=== PATIENT | male | born 1985 | race Caucasian/White ===

== ENCOUNTER 2020-06-27 09:33 | Emergency (ER) | payer OTHER ==
[2020-06-27 09:53] VITALS: BP 119/75
[2020-06-27] MEDS ORDERED: KETOROLAC TROMETHAMINE 60 MG/2 ML SDV IM ONE (10:54)
--- NOTE | 2020-06-27 10:56 | ER Document Report ---
HPI - HPI Time Seen by Provider: 06/27/20 10:31 Pain Level: 3 Context: Patient is a 35-year-old male who comes to the emergency department for chief complaint of lower back pain. He states he started having this pain about 3 days ago, he states this is worsened to the point that he has a a lot of trouble with position changes, he has to roll out of bed and maneuver for any position change. He also has a lot of pain with walking with shooting pains down the back of his left leg. Pain is worse in the left lower back. He denies recent injury although he states he has had trouble with his back for a while, he has been taking Robaxin without relief or improvement, he has seen a chiropractor in the past. He denies any specific severe trauma. 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 He denies any other medications or medical history. He denies recreational drugs, fever/chills, numbness, incontinence, vomiting, or other areas of pain. He is urinating without difficulty. Past Medical History - General Information source: Patient - Social History Smoking Status: Never Smoker Chew tobacco use (# tins/day): No Frequency of alcohol use: Social Drug Abuse: None Lives with: Family Family History: Reviewed & Not Pertinent - Immunizations Immunizations up to date: Yes Hx Diphtheria, Pertussis, Tetanus Vaccination: Yes Vertical Provider Document - CONSTITUTIONAL General Appearance: WD/WN, Mild Distress - Patient in obvious distress with position changes but otherwise well-appearing - HEENT HEENT: Atraumatic, Normal ENT Exam, Normocephalic - NECK Neck: Normal Inspection - RESPIRATORY Respiratory: Breath Sounds Normal, No Respiratory Distress - CARDIOVASCULAR Cardiovascular: Regular Rate, Regular Rhythm - GI/ABDOMEN Gastrointestinal: Abdomen Soft, Abdomen Non-Tender. negative: Abdomen Tender - BACK Back: negative: Normal Inspection - There is what appears to be muscle spasm in the left paralumbar musculature. Positive straight leg raise on the left. No midline tenderness, no saddle anesthesia, no signs of trauma. Normal upper and lower extremity range of motion, normal strength, normal distal neurovascular exam. - MUSCULOSKELETAL/EXTREMETIES Musculoskeletal/Extremeties: MAEW, FROM, Non-Tender - NEURO Level of Consciousness: Awake, Alert, Appropriate Motor/Sensory: No Motor Deficit, No Sensory Deficit - DERM Integumentary: Warm, Dry, No Rash Course - Re-evaluation Re-evalutation: Patient is miserable, has obvious difficulty with position changes, very positive left-sided straight leg raise, but no midline tenderness or red flags. No neurological deficits, fever, history of IV drug abuse. X-rays without any concerning findings. Patient has had this in the past. I suspect a herniated disc based on his physical exam and symptoms. I discussed work-up, patient is improved after Toradol but still having a lot of back spasms. Patient will be placed on therapy, [facility], I discussed recommendations and return precautions in detail. Patient is still able to ambulate. Patient states understanding and agreement. Stable and well- appearing at time of discharge. - Vital Signs Vital signs: Temp Pulse Resp BP Pulse Ox 97.6 F 83 14 119/75 98 06/27/20 09:47 06/27/20 09:47 06/27/20 09:47 06/27/20 09:47 06/27/20 09:47 - Laboratory Results Critical Laboratory Results Reviewed: No Critical Results - Radiology Results Critical Radiology Results Reviewed: No Critical Results Discharge - Discharge Clinical Impression: Lower back pain Qualifiers: Chronicity: acute Back pain laterality: left Sciatica presence: with sciatica Sciatica laterality: sciatica of left side Qualified Code(s): M54.42 - Lumbago with sciatica, left side Condition: Stable Disposition: HOME, SELF-CARE Additional Instructions: Your x-ray is normal. Your exam is consistent with a herniated disc causing impingement of the sciatic nerve resulting in your pain and muscle spasms. Take the prednisone as prescribed to completion, take the Valium as prescribed, apply heat to the area, avoid any lifting or twisting, and rest. If symptoms continue follow-up with primary care for additional management including possible physical therapy and MRI. Return if you worsen including developing numbness, inability to control your bowel or bladder, fever, or any other concerning or worsening symptoms. Prescriptions: Prednisone [Deltasone 10 mg Tablet] 10 mg PO ASDIR PRN #21 tablet PRN Reason: Diazepam [Valium 5 mg Tablet] 1 - 2 tab PO TID PRN #15 tablet PRN Reason: Forms: Return to Work Referrals: [facility] [[facility] - Follow up as needed
--- NOTE | 2020-06-27 11:50 | RADIOLOGY REPORT (SQ) ---
EXAM DESCRIPTION: L SPINE WHOLE IMAGES COMPLETED DATE/TIME: 06/27/2020 11:38 am REASON FOR STUDY: back pain, previous injury COMPARISON: None. NUMBER OF VIEWS: Five views including obliques. TECHNIQUE: AP, lateral, oblique, and sacral radiographic images acquired of the lumbar spine. LIMITATIONS: None. FINDINGS: MINERALIZATION: Normal. SEGMENTATION: Normal. No transitional anatomy. ALIGNMENT: Normal. VERTEBRAE: Maintained height. No fracture or worrisome bone lesion. DISCS: Preserved height. No significant osteophytes or end plate irregularity. POSTERIOR ELEMENTS: Pedicles and facets are intact. No pars defect or posterior arch defects. HARDWARE: None in the spine. PARASPINAL SOFT TISSUES: Normal. PELVIS: Intact as visualized. No fractures or worrisome bone lesions. SI joints intact. OTHER: No other significant finding. IMPRESSION: NORMAL 5 VIEW LUMBAR SPINE. TECHNICAL DOCUMENTATION: JOB ID: [id number] [employer]- All Rights Reserved Reading location - IP/workstation name: [email or web address]
[2020-06-27] MEDS ORDERED: DEXAMETHASONE SOD PHOS INJ 10 MG/1 ML VIAL IM ONE (12:15)
== END 2020-06-27 13:21 | disposition home or self-care (01) ==
LOC: ER 09:33
DX: M54.42 Lumbago with sciatica, left side (principal)
CPT/HCPCS: 99284; 96372; 72110; J1885; J1100